=== PATIENT | female | born 1955 | race Caucasian/White ===

== ENCOUNTER → 2016-11-10 | Day surgery (SDC) | payer OTHER ==
[~2016-11-10] MED LIST: ALPR0.25 PO; AMLO5 PO; ASPI-110 PO; ASPI81TA81; BACT800T5 PO; CEPH-460 PO; CYAN1TAB24 PO; ENAL10TA PO; GABA300C5 PO; LACTATED RINGER'S 1000 ML INJ 1,000 ML ONE; LIDOCAINE 1%/EPINEPHrine 1:100,000 SOLN 20 ML VIAL ONE; MIDAZOLAM HCL 2 MG/2 ML VIAL ONE; ONDANSETRON HCL 4 MG/2 ML VIAL IV PUSH ONE; OXYC1TAB63 PO; PROPOFOL 500 MG/50 ML BTL IV ONE; SODIUM CHLORIDE 0.9% INJ 10 ML ONE; VITA400C5 PO; ceFAZolin 2 GM PREMIX 50 ML ONE
--- NOTE | 2016-11-10 08:21 | TN ---
cc: JW MOLINA M.D., RUBY ANNE E. M.D. DATE OF SURGERY: 11/10/2016 PREOPERATIVE DIAGNOSIS Right breast poorly differentiated triple-negative invasive ductal carcinoma. POSTOPERATIVE DIAGNOSIS Right breast poorly differentiated triple-negative invasive ductal carcinoma. PROCEDURE Left subclavian Apmtkt-Y-Elph with intraoperative fluoroscopy. SURGEON Dr. Jw Molina ANESTHESIA Local 1% lidocaine with epinephrine plus TIVA. INDICATIONS A very pleasant 60-year-old woman who was recently diagnosed with poorly differentiated invasive ductal carcinoma of the right breast. It was triple negative. She has a 2.9 x 2.3 x 2.3 cm cancer seen on MRI with possibly local satellite lesions. She is interested in neoadjuvant chemotherapy. I have talked to Dr. Velasquez about this and she is in agreement. Port placement was planned. INTRAOPERATIVE FINDINGS Successful placement of left subclavian Lmkfpt-T-Ainp with the tip of the catheter in the distal superior vena cava. Port function was tested and there was easy blood return and forward concentrated heparinized saline flush flow through the port. A portable chest x-ray is pending. ESTIMATED BLOOD LOSS Less than 10 mL. DESCRIPTION OF PROCEDURE IN DETAIL The patient was identified as Christi Blount, taken to the operating room and placed in supine position with a rolled sheet between the shoulder blades. Following IV sedation by Anesthesia the upper chest and neck were prepped and draped in the usual sterile fashion with Betadine. A timeout procedure was performed. Following completion of the timeout procedure to everyone's satisfaction within the room, 1% lidocaine with epinephrine was infiltrated in the left subclavian area. The patient was placed in Trendelenburg position. The left subclavian vein was entered without difficulty using the introducer needle. A guidewire was advanced through the introducer needle into an appropriate position as seen on C-arm fluoroscopy. An Xwisuz-J-Fojv pocket was developed on the anterior chest after incision of the skin with a scalpel. The Sgqjmc-T-Fxpz which had been flushed with heparinized saline was placed into the Xlugvz-H-Ydey pocket with two 2-0 Prolene stay sutures and the catheter cut to an appropriate length as seen on C-arm fluoroscopy. A dilator and dilating sheath were placed over the guidewire. The dilator and guidewire were removed. The catheter was fed through the dilating sheath into appropriate position as seen on C-arm fluoroscopy. The dilating sheath was removed and the tip of the catheter was noted to be in the superior vena cava. Port function was tested and again there was easy blood return and forward concentrated heparinized saline flush flow through the port. The port pocket was closed in two layers with 3-0 Vicryl and 4-0 Monocryl. Dressing was applied with Mastisol, half-inch brown Steri-Strips, gauze and Tegaderm. The patient tolerated the procedure without apparent complication. Sponge, needle and instrument counts were correct at the end of the case. MD NEREYDA Santroo/BT /8:01 AM /8:16 AM
== END | disposition home or self-care (01) ==
LOC: ESDC 06:26
PROVIDERS: ATTEND Surgery Trauma Surgery
DX: C50.911 Malignant neoplasm of unspecified site of right female breast (principal)
CPT/HCPCS: 00532; 36561; 77001; C1788; J0690; J1642; J2250; J2405; J3010; J7120

== ENCOUNTER 2016-12-23 15:24 | Inpatient (IN) | payer OTHER ==
[~2016-12-23] VITALS: Ht 162.6 cm; Wt 71.0 kg
[2016-12-23 17:00] VITALS: BP 139/79; PULSE 95; RESP 18; TEMP 97.6; O2SAT 96
[2016-12-23] MEDS ORDERED: ONDANSETRON HCL 4 MG/2 ML VIAL IVP PRN ×2 (18:00→22:45)
[2016-12-23] MEDS ORDERED: SENNOSIDES 8.6 MG TAB PO PRN (18:00)
[2016-12-23] MEDS ORDERED: ASPI-110 PO (18:10)
[2016-12-23] MEDS ORDERED: AMLO5 PO (18:10)
[2016-12-23] MEDS ORDERED: CYAN1TAB24 PO (18:10)
[2016-12-23] MEDS ORDERED: ENAL10TA PO (18:10)
[2016-12-23] MEDS ORDERED: ASPI81TA81 (18:10)
[2016-12-23] MEDS ORDERED: VITA400C5 PO (18:10)
[2016-12-23] MEDS ORDERED: GABA300C5 PO (18:10)
[2016-12-23] MEDS ORDERED: ALPR0.25 PO (18:11)
[2016-12-23] MEDS ORDERED: Vancomycin Consult Pharmacy 1 EA OTHER SCH (18:15)
[2016-12-23] MEDS ORDERED: SODIUM CHLOR 0.9% 1000 ML INJ 1,000 ML IV SCH (19:00)
--- NOTE | 2016-12-23 19:10 | MH ---
cc: CHEMO TOVAR DATE OF ADMISSION 12/23/2016 DATE OF 1955 REASON FOR ADMISSION Low neutrophil count. Breast cancer. HISTORY OF PRESENT ILLNESS This is a pleasant 60-year-old white female who was recently diagnosed with invasive ductal carcinoma grade 3. The patient was in the hospital at the end of October with her newly diagnosed breast cancer. She is currently back in the hospital after her third round of chemotherapy with an extreme low neutrophil count 0.1. The patient will be followed per the hospitalist service as well as her oncologist with a plan to monitor, monitor reverse isolation and transition her neutrophil count back up. Any cancer treatment or regimen will be followed per oncology. The hospitalist will do medical management for comorbidities and to assist with monitoring her labs. Currently the patient is alert and oriented, a fairly good historian. She is receptive to her hospitalization and care. Her is at her side. Her symptoms include generalized weakness and fatigue especially after receiving chemotherapy treatment. PAST MEDICAL HISTORY Includes: 1. Fatty liver disease. 2. Hypertension. 3. No previous radiation therapy. Has just received her third chemotherapy treatment. 4. Auto Inspection Specialist history, two pregnancies one . Postmenopausal at age 47. PAST SURGICAL HISTORY 1. Port placement left chest wall. 2. Right breast guided biopsy. 3. Colonoscopy in 2008. ALLERGIES LATEX. MEDICATIONS 1. Aspirin. 2. Gabapentin. 3. Vitamin B12. 4. Amlodipine. 5. Enalapril per her old record. SOCIAL HISTORY The patient is currently , lives with her . The patient has never smoked. Social alcohol use, occasional. No illicit drug use. REVIEW OF SYSTEMS A 12 point was obtained. Positives and symptoms noted in the history of present illness which include some generalized weakness and fatigue. The patient denies any chest pain. No shortness of breath. No headache. appetite immediately after treatment but appetite has returned. The patient was able to eat yesterday without any distress. The patient is alert and oriented, a good historian. Other systems unremarkable or negative. PHYSICAL EXAMINATION VITAL SIGNS: The patient is a direct admission. Vital signs are pending. Her heart rate is palpable at less than 100, respirations are 20. GENERAL: Slim but well-nourished, white female, looks to be her stated age, resting in the bed. Alert, oriented, cooperative. SKIN: [place], warm and dry. [place] mucous membranes. HEENT: Atraumatic, normocephalic. Alopecia. No rashes. She does have a lesion that is closed without drainage noted on the right side of her head up above her ear. She does have erythema and some mild edema. She also notes a boil on the side of her upper leg close to the groin area. She states that the boil has had erythema but has decreased in size today. She was started on antibiotics yesterday. CARDIOVASCULAR: S1-S2, regular rate and rhythm. No murmurs, rubs, or gallops. LUNGS: Essentially clear anteriorly and posteriorly with no wheeze, rales or rhonchi. The patient denies any cough. ABDOMEN: Flat, soft and nontender, nondistended. Active bowel sounds. Soft. MUSCULOSKELETAL: Moves all of her extremities with purpose. She has no edema. Her pulses are intact. NEUROLOGIC: Speech is clear, audible. Equal hand grocery associate. Tongue is midline. Good historian. PSYCHIATRIC: Appropriate mood and affect. Insight and judgment appear normal. LABORATORY DATA The patient had CBC count drawn on 12/23/2016, WBC is 0.4, RBC 2.94, hemoglobin 9.5, hematocrit 27.6. Lymphocyte auto percentage 60.4, monocyte auto percentage 19.8. Eosinophils 0.3. Basophils 1.7. Neutrophil auto number is 0.1. Her neutrophil percentage is 17.8. Her manual neutrophil count is 0.1. Chemistries, sodium 143, potassium 3.8, chloride 106, carbon dioxide 29.3, anion gap 8, BUN 8, creatinine 0.68, GFR 89, random glucose 96. Calcium 8.8. Bilirubin 0.4, AST 25, ALT 38, alkaline phosphatase 73. Total protein 6.9. Albumin 3.5. No urine. IMAGING No imaging studies. ASSESSMENT AND PLAN 1. Neutropenia. 2. History of invasive ductal carcinoma. 3. Anemia. 4. History of hypertension. 5. History of fatty liver disease. Our plan is to monitor her vital signs, admit to inpatient status. Blood cultures have been drawn. We will monitor her vital signs q.4h. We will start the patient on antibiotics. Oxygen if patient as needed 2 liters. Activity as tolerated in her room. She is in reverse insolation with mask and gloves. We will monitor the infection and boils that are on her head and groin area. The patient was started on a penicillin antibiotic yesterday but we will start her on an IV antibiotic during the course of her treatment. To my knowledge the patient is full code, full aggressive care. She will be followed per Dr. Velasquez for her oncology needs. The patient will have pain management and her meds reconciled. Dictated by: MICHAEL Rodriguez Chemo Tovar MD JP/LIVIA /5:37 PM /6:27 PM PT SEEN AND EXAMINED ABOVE [facility] AND FAMILY AT BEDSIDE PLAN OF CARE [facility] MILLER RN SEE ORDERS MTDD
[2016-12-23 20:00] VITALS: BP 133/79; PULSE 102; RESP 18; TEMP 97.4; O2SAT 98
[2016-12-23] MEDS ORDERED: PIPERACIL-TAZO 3.375 GM PREMIX 50 ML IV SCH (20:00)
[2016-12-23] MEDS ORDERED: VANCOMYCIN 1,000 MG/NS 250 ML IV SCH ×2 (21:00)
[2016-12-23] MEDS: SODIUM CHLOR 0.9% 1000 ML INJ 1,000 ML IV SCH (22:38)
[2016-12-23] MEDS ORDERED: GABAPENTIN 300 MG CAP PO PRN (22:45)
[2016-12-23] MEDS ORDERED: ALPRAZolam 0.25 MG TAB PO PRN (22:45)
[2016-12-23] MEDS ORDERED: MORPHINE SULFATE 4 MG/ML INJ IV PRN (22:45)
[2016-12-23] MEDS ORDERED: oxyCODONE/ACETAMINOPHEN 5 MG/325 MG TAB PO PRN (22:45)
[2016-12-23] MEDS: VANCOMYCIN 1,000 MG/NS 250 ML IV SCH ×2 (23:31)
[2016-12-24] VITALS (7 sets, daily range): BP systolic 106–145; BP diastolic 61–82; PULSE 73–94; RESP 16–18; TEMP 97.8–98.5; O2SAT 95–99
[2016-12-24] MEDS: ALPRAZolam 0.25 MG TAB PO PRN ×2 (00:02→22:49)
[2016-12-24] MEDS ORDERED: CEFEPIME INJ 2,000 MG in SODIUM CHLORIDE 0.9% INJ 100 ML IV SCH (01:00)
[2016-12-24] MEDS ORDERED: CEFEPIME INJ 1,000 MG in SODIUM CHLORIDE 0.9% INJ 100 ML IV SCH (01:00)
[2016-12-24 04:59] LABS: BLOOD, URINE NEG (NEG); COMMENT (UR) CULT NOT INDICATED; CULTURE IF INDICATED CULT NOT INDICATED; GLUCOSE,URINE NEG (NEG); KETONE, URINE NEG (NEG); MUCUS URINE FEW /lpf (OCC); NITRITE,URINE NEG (NEG); PH, URINE 7.5 (5.0-8.5); SQUAMOUS EPITHELIAL CELL URINE <1 /hpf (0-5); URINE COLOR YELLOW (YELLW/STRAW)
[2016-12-24 06:22] LABS: HEMATOCRIT 24.2 % (35.0-46.0); MEAN CELL VOLUME 94.2 FL (80.0-100.0); MEAN CORPUSCULAR HEMOGLOBIN 32.3 PG (27.0-34.0); MEAN CORPUSCULAR HGB CONC 34.2 % (32.0-36.0); PLATELET COUNT 117 TH/MM3 (150-450); RED BLOOD COUNT 2.57 MIL/MM3 (4.00-5.30); RED CELL DISTRIBUTION WIDTH 13.2 % (11.6-17.2); WHITE BLOOD COUNT 0.6 TH/MM3 (4.0-11.0)
[2016-12-24 06:28] LABS: HEMO FLAGS AUTO DIFF
[2016-12-24 06:49] LABS: ALT (GPT) 25 U/L (10-53); ANION GAP 7 MEQ/L (5-15); AST (GOT) 17 U/L (15-37); BICARBONATE 27.2 MEQ/L (21.0-32.0); BLOOD UREA NITROGEN 7 MG/DL (7-18); CHLORIDE 104 MEQ/L (98-107); GLOMERULAR FILTRATION RATE 126 ML/MIN (>89); POTASSIUM 3.9 MEQ/L (3.5-5.1); SODIUM (NA) 138 MEQ/L (136-145)
[2016-12-24 06:51] LABS: ALKALINE PHOSPHATASE 59 U/L (45-117); TOTAL BILIRUBIN ADULT 0.5 MG/DL (0.2-1.0)
--- NOTE | 2016-12-24 07:48 | MB ---
cc: LACEY OLMSTEAD,CHEMO DATE OF CONSULTATION 12/23/2016 DATE OF [address] Chemo Rodríguez CHIEF COMPLAINT Dr. Rodríguez requested consultation for Mrs. Blount regarding neutropenic fever associated with breast cancer adjuvant therapy. HISTORY OF PRESENT ILLNESS Mrs. Blount is a 60-year-old woman with history of fatty liver, hypertension, and eczema. She presented with a palpable abnormality in her right breast and was diagnosed with a triple negative poorly differentiated invasive ductal carcinoma. On clinical ground, she had a stage IIB, T2, N1, M0 triple negative right breast cancer. She was receiving neoadjuvant chemotherapy with initial partial response. Her last chemotherapy her lesion appeared to have enlarged. She was treated with her last chemo week ago. Ultrasound comparison showed that the lesion was bigger. The day prior to her presentation in clinic, she went to [facility] consultation with Dr. Vicente. She reports having fevers of 100.9. It was documented at [facility]. CBC was performed at [facility] and she was called with the results of ANC of 500. She stayed at home. She did not call oncology until the following morning. She felt unwell overnight. She was started on amoxicillin for a scalp lesion. She had a skin infection. In the morning of the admission, she was instructed to come into the clinic to have a CBC repeated. Indeed her white count was 0.4, ANC of 100. She was having low grade temperature and temperature in clinic was 99.9. With the above, she was readily transferred to the hospital for admission. Admission was coordinated through Dr. Rodríguez. She was given a first dose of antibiotic in the regional oncology clinic. Ms. Blount denies any localizing symptoms. She has a scalp lesion that looks like cellulitis or focal folliculitis in the right parietal area as well as in the pubic area. She appears to have had some ingrown hair. For this reason, she was taking the amoxicillin overnight. She denies any other fever source. No cough. No shortness of breath. She was feeling unwell all throughout yesterday and today. She had a good consultation with Dr. Vicente. She is eager to see her surgeon, Dr. Oliver tomorrow, however, she is admitted to the hospital with the neutropenic fever. She has some generalized fatigue and nondescript achiness. REVIEW OF SYSTEMS The rest of her review of systems is negative. No headaches. No vision changes. PAST MEDICAL HISTORY 1. Fatty liver 2. Hypertension 3. Locally advanced right breast cancer triple negative. PAST SURGICAL HISTORY 1. Port placement 2. Ultrasound-guided biopsy 3. Colonoscopy FAMILY HISTORY Mother is . Father is alive. Paternal grandfather at age 84 with cancer. SOCIAL HISTORY Mrs. Blount is , lives with her , denies any tobacco or illicit drug use. She drinks alcohol occasionally. ALLERGIES LATEX CURRENT MEDICATIONS 1. Vancomycin 2. Xanax 3. Piperacillin/tazobactam PHYSICAL EXAM VITAL SIGNS: Temperature 97.6 heart rate 95, respiratory rate 18, blood pressure 139/79, saturation 96%. GENERAL: Mrs. Blount is a well-developed, well-nourished pleasant woman with alopecia. HEAD, EYES, EARS, NOSE, AND THROAT: Her pupils are reactive to light and accommodation. Oropharynx is clear. There is a small spot of wet purpura in the left buccal mucosa. LUNGS: Clear to auscultation. CARDIOVASCULAR: Exam reveals a normal rate, rhythm. ABDOMEN: Benign. EXTREMITIES: Lower extremity with no edema. NEUROLOGIC: Exam is nonfocal. There is an erythematous patch with diffuse margins in the right parietal area. She has alopecia. LABORATORY DATA Significant for a CBC with a hemoglobin 9.5, platelet count 166, ANC of 0.4. ASSESSMENT/PLAN Mrs. Blount is a 60-year-old woman receiving neoadjuvant chemotherapy admitted for neutropenic fever. Her ANC is 100. She has symptoms of feeling unwell. Her fever is partially treated with amoxicillin taken for a scalp lesion. I discussed with And Mrs. Blount rationale for admission to the hospital because of neutropenic fever. Blood culture was obtained in an outpatient setting. We will follow. We will monitor closely for any fevers. She has developed neutropenia despite G-CSF support. She is going to continue vancomycin in light of the skin lesion in the port. She will also be placed on Cefepime which will continue. She was given her first dose in the clinic around 02:00 p.m. We will need to follow up with Dr. Oliver as she is failing to respond to neoadjuvant chemotherapy. The breast mass is enlarging. She is advised at [facility] to proceed with definitive surgery for the right breast. She is agreeable with that plan which we plan to coordinate with Dr. Oliver on an outpatient setting. We will proceed with antibiotic prophylaxis. Reverse isolation. We will monitor closely for any other problems. MD LISY Garland/[place] /9:35 PM /7:30 AM
[2016-12-24] MEDS: PANTOPRAZOLE SOD 40 MG DELAYED RELEASE TAB PO SCH (07:55)
[2016-12-24] MEDS: ASPIRIN 81 MG CHEW TAB PO SCH (07:55)
[2016-12-24] MEDS: SODIUM CHLOR 0.9% 1000 ML INJ 1,000 ML IV SCH ×2 (07:55→17:59)
[2016-12-24] MEDS: CYANOCOBALAMIN 1,000 MCG TAB PO SCH (07:55)
[2016-12-24] MEDS: ACETAMINOPHEN 325 MG TAB PO PRN ×3 (08:07→17:59)
[2016-12-24] MEDS: VITAMIN E 400 UNIT CAP PO SCH (08:08)
[2016-12-24 08:53] LABS: BANDS 18 % (0-6); NEUTROPHIL # MANUAL DIFF 0.2 TH/MM3 (1.8-7.7); POLYS (SEG NEUTROPHILS) 10 % (16-70); WBC DIFF SAMPLE 50
[2016-12-24 08:54] LABS: DOHLE BODIES PRESENT (NONE SEEN); PLATELET ESTIMATE SMEAR LOW (NORMAL); PLATELET MORPHOLOGY NORMAL (NORMAL); SCAN/DIFF FINAL DIFF MANUAL
[2016-12-24] MEDS ORDERED: VITAMIN E 400 MG PO SCH (09:00)
[2016-12-24] MEDS ORDERED: NON-FORMULARY DRUG (Cyanocobalamin (B12) 1,000 MCG) PO SCH (09:00)
[2016-12-24] MEDS ORDERED: ASPIRIN 81 MG PO SCH (09:00)
[2016-12-24] MEDS ORDERED: amLODIPine BESYLATE 5 MG TAB PO SCH (09:00)
--- NOTE | 2016-12-24 09:29 | HHI.PR ---
Subjective Remarks Patient had some headache when she woke up and relieved by Tylenol No other complaint Review of system for 12 point system otherwise unremarkable Objective Objective Results - Vital Signs Date Time Temp Pulse Resp B/P Pulse Ox O2 Delivery O2 Flow Rate FiO2 12/24/16 08:00 98.2 73 16 116/74 98 12/24/16 04:00 98.4 87 17 106/61 97 12/24/16 00:00 97.9 85 17 118/64 99 12/23/16 20:00 97.4 102 18 133/79 98 12/23/16 17:00 97.6 95 18 139/79 96 I/O 12/23/16 12/23/16 12/23/16 12/24/16 12/24/16 12/24/16 07:00 15:00 23:00 07:00 15:00 23:00 Intake Total 480 ml 240 ml Balance 480 ml 240 ml Intake Oral 480 ml 240 ml # Voids 3 Result Diagram: 12/24/16 0548 12/24/16 0548 Other Results Laboratory Tests Test 12/24/16 12/24/16 00:45 05:48 Urine Color YELLOW Urine Turbidity CLEAR Urine pH 7.5 Urine Specific [place] 1.020 Urine Protein NEG Urine Glucose (UA) NEG Urine Ketones NEG Urine Occult Blood NEG Urine Nitrite NEG Urine Bilirubin NEG Urine Urobilinogen GREATER THAN 12.0 Urine Leukocyte Esterase NEG Urine RBC 1 Urine WBC 1 Urine Squamous Epithelial <1 Cells Urine Mucus FEW Microscopic Urinalysis Comment CULT NOT INDICATED White Blood Count 0.6 Red Blood Count 2.57 Hemoglobin 8.3 Hematocrit 24.2 Mean Corpuscular Volume 94.2 Mean Corpuscular Hemoglobin 32.3 Mean Corpuscular Hemoglobin 34.2 Concent Red Cell Distribution Width 13.2 Platelet Count 117 Mean Platelet Volume 8.4 Neutrophils (%) (Auto) Lymphocytes (%) (Auto) Monocytes (%) (Auto) Eosinophils (%) (Auto) Basophils (%) (Auto) Neutrophils # (Auto) Lymphocytes # (Auto) Monocytes # (Auto) Eosinophils # (Auto) Basophils # (Auto) CBC Comment AUTO DIFF Differential Total Cells 50 Counted Neutrophils % (Manual) 10 Band Neutrophils % 18 Lymphocytes % 48 Monocytes % 24 Neutrophils # (Manual) 0.2 Differential Comment FINAL DIFF MANUAL Dohle Bodies PRESENT Platelet Estimate LOW Platelet Morphology Comment NORMAL Red Cell Morphology Comment NORMAL Sodium Level 138 Potassium Level 3.9 Chloride Level 104 Carbon Dioxide Level 27.2 Anion Gap 7 Blood Urea Nitrogen 7 Creatinine 0.50 Estimat Glomerular Filtration 126 Rate Random Glucose 93 Calcium Level 8.5 Total Bilirubin 0.5 Aspartate Amino Transf 17 (AST/SGOT) Alanine Aminotransferase 25 (ALT/SGPT) Alkaline Phosphatase 59 Total Protein 6.3 Albumin 3.1 Date/Time Procedure Status Source Growth 12/23/16 13:45 Aerobic Blood Culture Received Blood Peripheral Pending 12/23/16 13:45 Anaerobic Blood Culture Received Blood Peripheral Pending Physical Exam Physical Exam VITAL SIGNS: Reviewed GENERAL: Slim but well-nourished, white female, looks to be her stated age, resting in the bed. Alert, oriented, cooperative. SKIN: [place], warm and dry. [place] mucous membranes. HEENT: Atraumatic, normocephalic. Alopecia. No rashes. She does have a lesion that is closed without drainage noted on the right side of her head new posterior upper side of temporal area, approximately 3 cm of erythema with some tenderness and mild swelling. No fluctuation. She also noted a boil on the side of her upper leg close to the groin area. She states that the boil has had erythema but has improved significantly. CARDIOVASCULAR: S1-S2, regular rate and rhythm. No murmurs, rubs, or gallops. LUNGS: Essentially clear anteriorly and posteriorly with no wheeze, rales or rhonchi. The patient denies any cough. ABDOMEN: Flat, soft and nontender, nondistended. Active bowel sounds. Soft. MUSCULOSKELETAL: Moves all of her extremities with purpose. She has no edema. Her pulses are intact. NEUROLOGIC: Speech is clear, audible. Equal hand fingernail sculptor. Tongue is midline. Good historian. PSYCHIATRIC: Appropriate mood and affect. Insight and judgment appear normal. A/P Assessment and Plan 1. Neutropenia. Neutropenic fever on admission 2. History of invasive ductal carcinoma. On neoadjuvant chemotherapy 3. Anemia. Of chronic disease 4. hypertension. 5. History of fatty liver disease. 6. Boil/cellulitis of head and groin area monitor her vital signs Monitor Blood cultures Labs reviewed Pancytopenia, will monitor Hypoalbuminemia Continue on antibiotics Oxygen if patient as needed 2 liters Activity as tolerated in her room She is in reverse insolation with mask and gloves monitor the infection and boils that are on her head and groin area Appreciate oncology input Discussed with RN Discussed with patient Medications reviewed Moon Rodríguez MD December 24, 2016 09:29
[2016-12-24] MEDS ORDERED: PILL SPLITTER OTHER PRN (09:45)
[2016-12-24] MEDS: VANCOMYCIN 1,000 MG/NS 250 ML IV SCH ×2 (10:28)
[2016-12-24] MEDS: CEFEPIME INJ 2,000 MG in SODIUM CHLORIDE 0.9% INJ 100 ML IV SCH ×4 (13:10→22:47)
--- NOTE | 2016-12-24 23:34 | PD.ONC.PN ---
Subjective Subjective Remarks Feels scalp is better, less pain. No fevers overnight. Objective Data Date Time Temp Pulse Resp B/P Pulse Ox O2 Delivery O2 Flow Rate FiO2 12/24/16 21:33 97 12/24/16 20:00 98.4 94 17 140/79 95 12/24/16 16:00 98.5 90 18 121/82 97 12/24/16 12:00 97.8 79 18 145/80 95 12/24/16 08:00 98.2 73 16 116/74 98 12/24/16 04:00 98.4 87 17 106/61 97 12/24/16 00:00 97.9 85 17 118/64 99 12/24/16 12/24/16 12/24/16 07:00 15:00 23:00 Intake Total 480 ml 840 ml 1136 ml Balance 480 ml 840 ml 1136 ml Result Diagram: 12/24/16 0548 12/24/16 0548 Laboratory Results Laboratory Tests Test 12/24/16 12/24/16 00:45 05:48 Urine Color YELLOW Urine Turbidity CLEAR Urine pH 7.5 Urine Specific [place] 1.020 Urine Protein NEG mg/dL Urine Glucose (UA) NEG mg/dL Urine Ketones NEG mg/dL Urine Occult Blood NEG Urine Nitrite NEG Urine Bilirubin NEG Urine Urobilinogen GREATER THAN 12.0 MG/DL Urine Leukocyte Esterase NEG Urine RBC 1 /hpf Urine WBC 1 /hpf Urine Squamous Epithelial <1 /hpf Cells Urine Mucus FEW /lpf Microscopic Urinalysis Comment CULT NOT INDICATED White Blood Count 0.6 TH/MM3 Red Blood Count 2.57 MIL/MM3 Hemoglobin 8.3 GM/DL Hematocrit 24.2 % Mean Corpuscular Volume 94.2 FL Mean Corpuscular Hemoglobin 32.3 PG Mean Corpuscular Hemoglobin 34.2 % Concent Red Cell Distribution Width 13.2 % Platelet Count 117 TH/MM3 Mean Platelet Volume 8.4 FL Neutrophils (%) (Auto) % Lymphocytes (%) (Auto) % Monocytes (%) (Auto) % Eosinophils (%) (Auto) % Basophils (%) (Auto) % Neutrophils # (Auto) TH/MM3 Lymphocytes # (Auto) TH/MM3 Monocytes # (Auto) TH/MM3 Eosinophils # (Auto) TH/MM3 Basophils # (Auto) TH/MM3 CBC Comment AUTO DIFF Differential Total Cells 50 Counted Neutrophils % (Manual) 10 % Band Neutrophils % 18 % Lymphocytes % 48 % Monocytes % 24 % Neutrophils # (Manual) 0.2 TH/MM3 Differential Comment FINAL DIFF MANUAL Dohle Bodies PRESENT Platelet Estimate LOW Platelet Morphology Comment NORMAL Red Cell Morphology Comment NORMAL Sodium Level 138 MEQ/L Potassium Level 3.9 MEQ/L Chloride Level 104 MEQ/L Carbon Dioxide Level 27.2 MEQ/L Anion Gap 7 MEQ/L Blood Urea Nitrogen 7 MG/DL Creatinine 0.50 MG/DL Estimat Glomerular Filtration 126 ML/MIN Rate Random Glucose 93 MG/DL Calcium Level 8.5 MG/DL Total Bilirubin 0.5 MG/DL Aspartate Amino Transf 17 U/L (AST/SGOT) Alanine Aminotransferase 25 U/L (ALT/SGPT) Alkaline Phosphatase 59 U/L Total Protein 6.3 GM/DL Albumin 3.1 GM/DL Culture Results Microbiology Date/Time Procedure Status Source Growth 12/23/16 13:45 Aerobic Blood Culture - Preliminary Resulted Blood Peripheral NO GROWTH IN 1 DAY 12/23/16 13:45 Anaerobic Blood Culture - Preliminary Resulted Blood Peripheral NO GROWTH IN 1 DAY Administered Medications Medications (Trade) Dose Ordered Sig/Jama Route PRN Reason Start Time Stop Time Status Last Admin Dose Admin Alprazolam 0.25 mg 0.25 mg Q6H PRN PO ANXIETY 12/23/16 21:00 12/24/16 22:49 Cefepime HCl 2000 mg/Sodium Chloride 100 ml @ 200 mls/hr Q12H IV 12/24/16 00:00 12/24/16 22:47 Sodium Chloride (NS 1000 ml Inj) 1,000 ml @ 100 mls/hr Q10H IV 12/23/16 22:38 12/24/16 17:59 Acetaminophen (Tylenol) 650 mg Q6H PRN PO PAIN SCALE 1 TO 2 12/23/16 22:45 12/24/16 15:47 Pantoprazole Sodium (Protonix) 40 mg DAILY PO 12/24/16 09:00 12/24/16 07:55 Aspirin (Aspirin Chew) 81 mg DAILY PO 12/24/16 09:00 12/24/16 07:55 Cyanocobalamin (Vitamin B12) 1,000 mcg DAILY PO 12/24/16 09:00 12/24/16 07:55 Vitamin E 400 units 400 units DAILY PO 12/24/16 09:00 12/24/16 08:08 Vancomycin HCl/ Sodium Chloride (Vancomycin Inj/ NS 250 ml Inj) 250 ml @ 250 mls/hr Q12H IV 12/23/16 23:00 12/24/16 10:28 Objective Remarks GENERAL: Well-nourished, well-developed patient. SKIN: Warm and dry. Erythema with cellulitis present. HEAD: Normocephalic. Alopecia. EYES: No scleral icterus. No injection or drainage. NECK: Supple, trachea midline. No JVD or lymphadenopathy. LYMPHATIC: No adenopathy. CARDIOVASCULAR: Regular rate and rhythm without murmurs. RESPIRATORY: Breath sounds equal bilaterally. No accessory muscle use. GASTROINTESTINAL: Abdomen soft, non-tender, nondistended. EXTREMITIES: No cyanosis, or edema. MUSCULOSKELETAL: Adequate muscle tone. NEUROLOGICAL: No obvious focal deficit. Awake, alert, and oriented x3. PSYCHIATRIC: Appropriate mood and affect; insight and judgment normal. Assessment/Plan Problem List: (1) Neutropenic fever Status: Acute Plan: Afebrile, clinically better, still with R scalp cellulitis/folliculitis. Still severely neutropenic. Vitals stable. Blood cultures still negative. Continue broad spectrum antibiotic support. (2) Locally advanced carcinoma of right breast Status: Acute Plan: Discussed plan for resection of triple negative breast cancer not responsive to neoadjuvant chemotherapy with Adriamycin and Cytoxan. Plan with Dr. Oliver to proceed with R mastectomy next Wednesday. Anticipate Neutrophil recovery by then. Defer plans for reconstruction. Assessment 61 y/o woman with locally advanced triple negative R breast cancer, growing despite chemotherapy, course complicated by neutropenic fever and R scalp cellulitis/folliculitis. Plan 1. Continue Cefepime and Vancomycin 2. Defer from TPA port until WBC recover 3. Continue reverse isolation Alaina Velasquez MD December 24, 2016 23:34
[2016-12-25] VITALS: BP 126/87; PULSE 91; RESP 17; TEMP 97.3; O2SAT 96
[2016-12-25] MEDS: VANCOMYCIN 1,000 MG/NS 250 ML IV SCH ×4 (00:13→11:50)
[2016-12-25] MEDS: SODIUM CHLOR 0.9% 1000 ML INJ 1,000 ML IV SCH (03:00)
[2016-12-25 04:00] VITALS: BP 123/65; PULSE 91; RESP 17; TEMP 98.1; O2SAT 96
[2016-12-25] MEDS: ASPIRIN 81 MG CHEW TAB PO SCH (07:35)
[2016-12-25] MEDS: PANTOPRAZOLE SOD 40 MG DELAYED RELEASE TAB PO SCH (07:35)
[2016-12-25] MEDS: VITAMIN E 400 UNIT CAP PO SCH (07:35)
[2016-12-25] MEDS: CYANOCOBALAMIN 1,000 MCG TAB PO SCH (07:35)
[2016-12-25 07:40] LABS: BASOPHIL % 0.4 % (0.0-2.0); EOSINOPHIL % 0.1 % (0.0-4.0); HEMATOCRIT 26.7 % (35.0-46.0); LYMPH % 22.2 % (9.0-44.0); LYMPHOCYTE # 0.4 TH/MM3 (1.0-4.8); MEAN CELL VOLUME 93.8 FL (80.0-100.0); MEAN CORPUSCULAR HEMOGLOBIN 32.1 PG (27.0-34.0); MEAN CORPUSCULAR HGB CONC 34.3 % (32.0-36.0); MONO % 14.1 % (0.0-8.0); NEUT % 63.2 % (16.0-70.0); PLATELET COUNT 122 TH/MM3 (150-450); RED BLOOD COUNT 2.85 MIL/MM3 (4.00-5.30); WHITE BLOOD COUNT 1.6 TH/MM3 (4.0-11.0)
[2016-12-25 07:42] LABS: HEMO FLAGS AUTO DIFF
[2016-12-25 08:59] VITALS: BP 158/93; PULSE 89; RESP 20; TEMP 97.9; O2SAT 98
[2016-12-25] MEDS ORDERED: amLODIPine BESYLATE 5 MG TAB PO SCH (09:00)
--- NOTE | 2016-12-25 09:20 | HHI.PR ---
Subjective Remarks Patient has no complaint Wants to go home today Review of system for 12 point system otherwise unremarkable Objective Objective Results - Vital Signs Date Time Temp Pulse Resp B/P Pulse Ox O2 Delivery O2 Flow Rate FiO2 12/25/16 08:59 97.9 89 20 158/93 98 12/25/16 04:00 98.1 91 17 123/65 96 12/25/16 00:00 97.3 91 17 126/87 96 12/24/16 21:33 97 12/24/16 20:00 98.4 94 17 140/79 95 12/24/16 16:00 98.5 90 18 121/82 97 12/24/16 12:00 97.8 79 18 145/80 95 I/O 12/24/16 12/24/16 12/24/16 12/25/16 12/25/16 12/25/16 07:00 15:00 23:00 07:00 15:00 23:00 Intake Total 480 ml 840 ml 1136 ml 1555 ml Balance 480 ml 840 ml 1136 ml 1555 ml Intake Oral 480 ml 840 ml 480 ml IV Total 1136 ml 1075 ml # Voids 3 4 3 5 # Bowel Movements 0 Result Diagram: 12/25/16 0655 12/24/16 0548 Other Results Laboratory Tests Test 12/25/16 06:55 White Blood Count 1.6 Red Blood Count 2.85 Hemoglobin 9.2 Hematocrit 26.7 Mean Corpuscular Volume 93.8 Mean Corpuscular Hemoglobin 32.1 Mean Corpuscular Hemoglobin 34.3 Concent Red Cell Distribution Width 13.0 Platelet Count 122 Mean Platelet Volume 8.9 Neutrophils (%) (Auto) 63.2 Lymphocytes (%) (Auto) 22.2 Monocytes (%) (Auto) 14.1 Eosinophils (%) (Auto) 0.1 Basophils (%) (Auto) 0.4 Neutrophils # (Auto) 1.0 Lymphocytes # (Auto) 0.4 Monocytes # (Auto) 0.2 Eosinophils # (Auto) 0.0 Basophils # (Auto) 0.0 CBC Comment AUTO DIFF Date/Time Procedure Status Source Growth 12/23/16 13:45 Aerobic Blood Culture - Preliminary Resulted Blood Peripheral NO GROWTH IN 1 DAY 12/23/16 13:45 Anaerobic Blood Culture - Preliminary Resulted Blood Peripheral NO GROWTH IN 1 DAY Physical Exam Physical Exam VITAL SIGNS: Reviewed GENERAL: Slim but well-nourished, white female, looks to be her stated age, resting in the bed. Alert, oriented, cooperative. SKIN: [place], warm and dry. [place] mucous membranes. HEENT: Atraumatic, normocephalic. Alopecia. No rashes. She does have a lesion that is closed without drainage noted on the right side of her head new posterior upper side of temporal area, approximately 2 cm of erythema with some mild tenderness and mild swelling. No fluctuation. She also had a boil on the side of her upper leg close to the groin area. She states that the boil has had erythema but has improved. CARDIOVASCULAR: S1-S2, regular rate and rhythm. No murmurs, rubs, or gallops. LUNGS: Essentially clear anteriorly and posteriorly with no wheeze, rales or rhonchi. The patient denies any cough. ABDOMEN: Flat, soft and nontender, nondistended. Active bowel sounds. Soft. MUSCULOSKELETAL: Moves all of her extremities with purpose. She has no edema. Her pulses are intact. NEUROLOGIC: Speech is clear, audible. Equal hand commercial lines sales executive. Tongue is midline. Good historian. PSYCHIATRIC: Appropriate mood and affect. Insight and judgment appear normal. A/P Assessment and Plan 1. Neutropenia. Neutropenic fever on admission 2. History of invasive ductal carcinoma. On neoadjuvant chemotherapy 3. Anemia. Of chronic disease 4. hypertension. 5. History of fatty liver disease. 6. Boil/cellulitis of head and groin area Patient is afebrile with normal blood pressure and control heart rate Blood culture so far negative Labs reviewed Improving WBC count Hypoalbuminemia Continue on antibiotics Oxygen if patient as needed 2 liters Activity as tolerated in her room Patient is improving on the Appreciate oncology input. Discussed with Dr. Velasquez. Blood cultures for 2 days negative will discharge her home to be followed by Dr. Velasquez next week Discussed with RN Discussed with patient Medications reviewed plan to dc her on po abx dc home today Moon Rodríguez MD December 25, 2016 09:20
[2016-12-25 09:21] LABS: BANDS 21 % (0-6); BASOPHILS 3 % (0-2); DOHLE BODIES PRESENT (NONE SEEN); METAMYELOCYTES 1 % (0-1); NEUTROPHIL # MANUAL DIFF 0.9 TH/MM3 (1.8-7.7); POLYS (SEG NEUTROPHILS) 37 % (16-70); WBC DIFF SAMPLE 100
[2016-12-25 09:22] LABS: PLATELET ESTIMATE SMEAR LOW (NORMAL); PLATELET MORPHOLOGY NORMAL (NORMAL); SCAN/DIFF FINAL DIFF MANUAL
[2016-12-25] MEDS ORDERED: PHARMACY ORDERED LAB ONE (10:45)
[2016-12-25 12:00] VITALS: BP 138/84; PULSE 81; RESP 20; TEMP 99.2; O2SAT 97
[2016-12-25] MEDS: CEFEPIME INJ 2,000 MG in SODIUM CHLORIDE 0.9% INJ 100 ML IV SCH (12:00)
--- NOTE | 2016-12-25 13:59 | PD.ONC.PN ---
Subjective Subjective Remarks Afebrile overnight. Tmax 99.2 today. Feeling well. Wanting to go home. Denies cough or shortness of breath. Denies urinary symptoms. Objective Data Date Time Temp Pulse Resp B/P Pulse Ox O2 Delivery O2 Flow Rate FiO2 12/25/16 12:00 99.2 81 20 138/84 97 12/25/16 08:59 97.9 89 20 158/93 98 12/25/16 04:00 98.1 91 17 123/65 96 12/25/16 00:00 97.3 91 17 126/87 96 12/24/16 21:33 97 12/24/16 20:00 98.4 94 17 140/79 95 12/24/16 16:00 98.5 90 18 121/82 97 Result Diagram: 12/25/16 0655 12/24/16 0548 Laboratory Results Laboratory Tests Test 12/25/16 12/25/16 06:55 10:55 White Blood Count 1.6 TH/MM3 Red Blood Count 2.85 MIL/MM3 Hemoglobin 9.2 GM/DL Hematocrit 26.7 % Mean Corpuscular Volume 93.8 FL Mean Corpuscular Hemoglobin 32.1 PG Mean Corpuscular Hemoglobin 34.3 % Concent Red Cell Distribution Width 13.0 % Platelet Count 122 TH/MM3 Mean Platelet Volume 8.9 FL Neutrophils (%) (Auto) 63.2 % Lymphocytes (%) (Auto) 22.2 % Monocytes (%) (Auto) 14.1 % Eosinophils (%) (Auto) 0.1 % Basophils (%) (Auto) 0.4 % Neutrophils # (Auto) 1.0 TH/MM3 Lymphocytes # (Auto) 0.4 TH/MM3 Monocytes # (Auto) 0.2 TH/MM3 Eosinophils # (Auto) 0.0 TH/MM3 Basophils # (Auto) 0.0 TH/MM3 CBC Comment AUTO DIFF Differential Total Cells 100 Counted Neutrophils % (Manual) 37 % Band Neutrophils % 21 % Lymphocytes % 28 % Monocytes % 10 % Basophils % 3 % Neutrophils # (Manual) 0.9 TH/MM3 Metamyelocytes 1 % Differential Comment FINAL DIFF MANUAL Dohle Bodies PRESENT Platelet Estimate LOW Platelet Morphology Comment NORMAL Red Cell Morphology Comment NORMAL Vancomycin Level Trough 5.1 MCG/ML Culture Results Microbiology Date/Time Procedure Status Source Growth 12/23/16 13:45 Aerobic Blood Culture - Preliminary Resulted Blood Peripheral NO GROWTH IN 2 DAYS 12/23/16 13:45 Anaerobic Blood Culture - Preliminary Resulted Blood Peripheral NO GROWTH IN 2 DAYS Administered Medications Medications (Trade) Dose Ordered Sig/Jama Route PRN Reason Start Time Stop Time Status Last Admin Dose Admin Alprazolam 0.25 mg 0.25 mg Q6H PRN PO ANXIETY 12/23/16 21:00 12/24/16 22:49 Cefepime HCl 2000 mg/Sodium Chloride 100 ml @ 200 mls/hr Q12H IV 12/24/16 00:00 12/24/16 22:47 Sodium Chloride (NS 1000 ml Inj) 1,000 ml @ 100 mls/hr Q10H IV 12/23/16 22:38 12/25/16 03:00 Acetaminophen (Tylenol) 650 mg Q6H PRN PO PAIN SCALE 1 TO 2 12/23/16 22:45 12/24/16 15:47 Pantoprazole Sodium (Protonix) 40 mg DAILY PO 12/24/16 09:00 12/25/16 07:35 Aspirin (Aspirin Chew) 81 mg DAILY PO 12/24/16 09:00 12/25/16 07:35 Cyanocobalamin (Vitamin B12) 1,000 mcg DAILY PO 12/24/16 09:00 12/25/16 07:35 Vitamin E (Vitamin E) 400 units DAILY PO 12/24/16 09:00 12/25/16 07:35 Amlodipine Besylate (Norvasc) 2.5 mg DAILY PO 12/25/16 09:00 12/25/16 07:34 Objective Remarks GENERAL: Middle aged female, sitting up in bed in [facility]. SKIN: Warm and dry. HEAD: Normocephalic. EYES: No injection or drainage. NECK: Supple, trachea midline. CARDIOVASCULAR: Regular rate and rhythm RESPIRATORY: Breath sounds equal bilaterally. No accessory muscle use. GASTROINTESTINAL: Abdomen soft, non-tender, nondistended. EXTREMITIES: No cyanosis NEUROLOGICAL: awake and alert, normal speech. moving all extremities. no obvious focal deficit. Assessment/Plan Problem List: (1) Neutropenic fever Status: Acute Plan: 12/25: Neutrophil count improved to 900 today. afebrile. clear for discharge Blood cultures negative. (2) Locally advanced carcinoma of right breast Status: Acute Plan: 12/25: patient advised to follow up for appointment on 12/30 will check CBC on that day and possibly review CRCA --plan for resection of triple negative breast cancer not responsive to neoadjuvant chemotherapy with Adriamycin and Cytoxan. --Dr. Oliver to proceed with R mastectomy next Wednesday. Anticipate Neutrophil recovery by then. Defer plans for reconstruction. Assessment 61 y/o woman with locally advanced triple negative R breast cancer, growing despite chemotherapy, course complicated by neutropenic fever and R scalp cellulitis/folliculitis. Plan 1. clear for discharge. patient advised to return to the ED immediately if she developed fever>100.4 2. follow up in clinic next Wednesday for CBC check and review BRCA results Attending Statement The exam, history, and the medical decision-making described in the above note were completed with the assistance of the mid-level provider. I reviewed and agree with the findings presented. I attest that I had a [id number] encounter with the patient on the same day, and personally performed and documented my assessment and findings in the medical record. Pt seen and examined, eager to go home. ANC 1000, afebrile, noted low grade. Scalp cellulitis will need continue abx treatment. Discussed w/ Jacey and Dr. Rodríguez. Plan to DC this evening. FU on Wednesday labs, appt on Wed. Jacey Méndez December 25, 2016 13:59 Alaina Velasquez MD December 25, 2016 18:55
[2016-12-25] MEDS ORDERED: VANCOMYCIN 1,500 MG/NS 500 ML IV SCH ×2 (14:00)
[2016-12-25] MEDS ORDERED: OXYC1TAB63 PO (15:20)
[2016-12-25] MEDS ORDERED: BACT800T5 PO (15:20)
[2016-12-25] MEDS ORDERED: CEPH-460 PO (15:20)
--- NOTE | 2016-12-25 15:26 | HHI.DS ---
Discharge Summary Admission Date December 23, 2016 at 15:45 Admitting Diagnosis (1) Neutropenic fever Diagnosis: Principal (2) Cellulitis Brief History Patient was admitted because of the low-grade fever with neutropenia. Admitting diagnoses 1 neutropenic fever. Patient also found out to have a boil/ folliculitis with some cellulitis on head and on left groin area. Patient was started on antibiotic. Patient was seen and followed by oncology. Her neutropenia did get better. She was in reverse isolation while she was in the hospital. Now as overall she is improving and better in good condition plan to discharge her home on a by mouth antibiotic. Discuss case with oncologist and it was okay to discharge. Home. CBC/BMP: 12/25/16 0655 12/24/16 0548 Significant Findings Laboratory Tests Test 12/24/16 12/24/16 12/25/16 00:45 05:48 06:55 Urine Urobilinogen GREATER THAN 12.0 MG/DL (LESS THAN 2.0) Urine Mucus FEW /lpf (OCC) White Blood Count 0.6 TH/MM3 1.6 TH/MM3 (4.0-11.0) (4.0-11.0) Red Blood Count 2.57 MIL/MM3 2.85 MIL/MM3 (4.00-5.30) (4.00-5.30) Hemoglobin 8.3 GM/DL 9.2 GM/DL (11.6-15.3) (11.6-15.3) Hematocrit 24.2 % 26.7 % (35.0-46.0) (35.0-46.0) Platelet Count 117 TH/MM3 122 TH/MM3 (150-450) (150-450) Neutrophils % (Manual) 10 % (16-70) Band Neutrophils % 18 % (0-6) 21 % (0-6) Lymphocytes % 48 % (9-44) Monocytes % 24 % (0-8) 10 % (0-8) Neutrophils # (Manual) 0.2 TH/MM3 0.9 TH/MM3 (1.8-7.7) (1.8-7.7) Dohle Bodies PRESENT (NONE PRESENT (NONE SEEN) SEEN) Platelet Estimate LOW (NORMAL) LOW (NORMAL) Total Protein 6.3 GM/DL (6.4-8.2) Albumin 3.1 GM/DL (3.4-5.0) Monocytes (%) (Auto) 14.1 % (0.0-8.0) Neutrophils # (Auto) 1.0 TH/MM3 (1.8-7.7) Lymphocytes # (Auto) 0.4 TH/MM3 (1.0-4.8) Basophils % 3 % (0-2) Pt Condition on Discharge: Good Discharge Disposition: Discharge Home Discharge Instructions DIET: Follow Instructions for: As Tolerated, No Restrictions Activities you can perform: Weight Bearing as Sen Follow up Referrals: Oncology - 1 Week New Medications: Cephalexin (Keflex) 500 Mg Cap 500 MG PO Q12H Infection #14 Ref 0 CAP Sulfamethoxazole-Trimethoprim (Bactrim DS) 800-160 Mg Tab 1 TAB PO BID Infection #14 Ref 0 TAB Oxycodone-Acetaminophen (Oxycodone-Acetaminophen) 5-325 mg Tab 1 TAB PO Q6H PRN PAIN SCALE 3 TO 5 #30 TAB Continued Medications: Alprazolam (Alprazolam) 0.25 Mg Tab 0.25 MG PO HS PRN anxiety Ref 0 TAB Amlodipine (Norvasc) 5 Mg Tab 5 MG PO DAILY Blood Pressure Management #[address] Ref [address] (Aspirin 81) 81 Mg Tabdr 81 MG PO DAILY Ref 0 TAB Cyanocobalamin (B12) 1,000 Mcg Tab 1000 MCG PO DAILY Enalapril (Enalapril) 10 Mg Tab 10 MG PO DAILY #60 Ref 0 TAB Gabapentin (Gabapentin) 300 Mg Cap 300 MG PO DAILY PRN neuropathy #60 Ref 0 CAP Vitamin E (E-400) 400 Unit Cap 400 MG PO DAILY Discontinued Medications: Aspirin DR (Aspir-81) 81 Mg Tabdr Moon Rodríguez MD December 25, 2016 15:26
[2016-12-27] MEDS ORDERED: PHARMACY ORDERED LAB ONE (01:45)
== END 2016-12-25 16:11 | disposition home or self-care (01) | DRG 809 ==
LOC: HOCB 15:45
PROVIDERS: ADMIT Specialist; ATTEND Specialist
DX: D70.9 Neutropenia, unspecified (principal); L03.811 Cellulitis of head [any part, except face]; K76.0 Fatty (change of) liver, not elsewhere classified; C50.911 Malignant neoplasm of unspecified site of right female breast; E88.09 Other disorders of plasma-protein metabolism, not elsewhere classified; I10 Essential (primary) hypertension; R50.81 Fever presenting with conditions classified elsewhere; L73.9 Follicular disorder, unspecified; R51 Headache
CPT/HCPCS: 36591; 80053; 80202; 81001; 85007; 85027; 87040; 96365; J0692; J3370; J7030; J7040; J7050

== ENCOUNTER → 2017-01-01 | Day surgery (SDC) | payer OTHER ==
[~2017-01-01] MED LIST changes: +ACETAMINOPHEN/HYDROcodone 325 MG/5 MG TAB ONE; -ASPI81TA81; +BUPIVACAINE/EPINEPHRINE 0.25% 50 ML VIAL ONE; +ISOSULFAN BLUE 50 MG/5 ML VIAL SQ ONE; +LACTATED RINGER'S 1,000 ML BAG IV ONE; -LIDOCAINE 1%/EPINEPHrine 1:100,000 SOLN 20 ML VIAL ONE; +MEPERIDINE HCL 50 MG/ML VIAL ONE; +PROPOFOL 200 MG/20 ML AMP IV ONE; -PROPOFOL 500 MG/50 ML BTL IV ONE; -SODIUM CHLORIDE 0.9% INJ 10 ML ONE
--- NOTE | 2017-01-01 16:26 | TN ---
cc: NARENDRA MOLINA M.D., RUBY ANNE E. M.D. DATE OF SURGERY: 01/01/2017. PREOPERATIVE DIAGNOSIS: 1. Right breast poorly differentiated invasive ductal carcinoma. 2. Scalp abscess. POSTOPERATIVE DIAGNOSIS: 1. Right breast poorly differentiated invasive ductal carcinoma. 2. Scalp abscess. OPERATIVE PROCEDURE PERFORMED: 1. Injection blue dye right breast. 2. Right total mastectomy with right axillary sentinel lymph node biopsy. 3. Incision and drainage, scalp abscess. SURGEON: Dr. Narendra Molina. DETONATOR ASSEMBLER: MICHAEL Cuevas. ANESTHESIA: General. INDICATIONS FOR THE PROCEDURE: Very pleasant 61-year-old woman who was diagnosed with poorly differentiated triple-negative right breast cancer and underwent neoadjuvant chemotherapy under the direction of Dr. Alaina Velasquez. Unfortunately the tumor grew in spite of the chemotherapy and plans are made for definitive surgery. INTRAOPERATIVE FINDINGS: 1. Right breast to pathology with short stitch superior and anterior and a long stitch lateral and posterior. 2. A sentinel lymph node axillary fatty package sent with four identifiable sentinel lymph nodes: #1 with a 10-second count of 169, and #2 with 2982, #3 216 and #4 2773. 3. No additional palpable nodes were demonstrated within the axilla. DRAINS: A #10 K[place] fluted drain was placed and a Deshaun dressing placed. NOTE: This procedure was assisted by my nurse practitioner. The skill set of an MEDICAL EDUCATION MANAGER was medically necessary to provide appropriate visualization of the operative field and facilitate efficiency of the completion of the procedure. The surgical garment fitter was at the back table providing appropriate instrumentation while the nurse practitioner directly assisted me. ESTIMATED BLOOD LOSS: Less than 25 mL. DESCRIPTION OF THE PROCEDURE IN DETAIL: The patient was identified as Divya Blount and taken to the operating room and placed in the supine position. Sequential compression devices were placed on bilateral lower extremities. The patient had undergone lymphoscintigraphy and had been marked appropriately by radiology. Following induction of adequate general anesthesia, the patient's right breast, chest wall and axilla were prepped and draped in the usual sterile fashion with Betadine. A time-out procedure had been performed. Following completion the time-out procedure to everyone's satisfaction within the room, 5 mL of isosulfan blue dye was injected in the peritumoral and subareolar positions. The Navigator probe was used and increased uptake in the internal mammary chain was beneath the sternum superomedially. There was more active increased uptake actually in the right axilla than in the internal mammary. The location had been marked by radiology. A proposed clam shell incision which was more extensive than I would normally do due to the proximity of the tumor at the twelve o'clock position to the overlying skin. The marking pen was used to make this proposed incision and the incision was carried out with a scalpel. Hemostasis was controlled with electrocautery. Circumferential skin flaps were then developed using electrocautery and appropriate retraction and the breast was then removed from the underlying pectoralis muscle including the fascia with the specimen superomedial to inferolateral. The breast was marked and sent to pathology. The sentinel lymph node biopsy was then performed with the above-mentioned findings. Lymph nodes and lymphatics were from surrounding tissues using combination electrocautery, blunt dissection and hemoclips on lymphovascular structures. At least one intercostal brachial nerve was encountered and divided. The specimen was passed off the field for pathologic evaluation. No additional increased uptake or palpable lymphadenopathy was identified within the wound. No additional blue-stained lymphatics were seen. The wound was copiously irrigated with saline. Small bleeding points were controlled with electrocautery. Once the wound was sure to be dry, through separate stab incision inferomedially a 10 [place] fluted drain was placed through the incision and into the operative field beneath the skin flaps and held in position at the level of the skin with a 3-0 nylon drain stitch. The wound was approximated with multiple interrupted 3-0 Vicryl sutures and a running 4-0 Monocryl subcuticular suture. A Deshaun dressing was applied in standard fashion using Mastisol with the Deshaun dressing over the exit site of the drain. A Biopatch was placed and clear bandages of the Deshaun dressing were placed over the Biopatch. Through the drain, 25 mL of Marcaine was placed and the drain bulb was connected but not activated. Attention was then turned to the a scalp. The small area of inflammation was prepped with Betadine spray. The surrounding area was infiltrated with local anesthetic and a small stab incision was made with a scalpel and purulent drainage expressed. It was then irrigated, with local anesthetic Betadine and saline. A dry dressing was placed. The patient tolerated the procedures well without apparent complication. Sponge, needle and instrument counts were correct at the end of the case. MD NEREYDA Santoro/SHARAN /3:50 PM /4:09 PM
== END | disposition home or self-care (01) ==
LOC: ESDC 06:21
PROVIDERS: ATTEND Surgery Trauma Surgery
DX: C50.911 Malignant neoplasm of unspecified site of right female breast (principal); L02.811 Cutaneous abscess of head [any part, except face]
CPT/HCPCS: 00300; 00400; 01610; 10060; 19303; 38525; 38792; 88307; J0690; J2175; J2250; J2405; J3010; J7120; Q9968; 88361

== ENCOUNTER 2017-07-08 12:14 | Emergency (ER) | payer OTHER ==
[~2017-07-08] VITALS: Ht 162.6 cm; Wt 70.0 kg
[~2017-07-08 12:14] MED LIST changes: -ACETAMINOPHEN/HYDROcodone 325 MG/5 MG TAB ONE; -ASPI-110 PO; +ASPI1TAB57 PO; -BUPIVACAINE/EPINEPHRINE 0.25% 50 ML VIAL ONE; -ISOSULFAN BLUE 50 MG/5 ML VIAL SQ ONE; -LACTATED RINGER'S 1,000 ML BAG IV ONE; -LACTATED RINGER'S 1000 ML INJ 1,000 ML ONE; -MEPERIDINE HCL 50 MG/ML VIAL ONE; -MIDAZOLAM HCL 2 MG/2 ML VIAL ONE; -ONDANSETRON HCL 4 MG/2 ML VIAL IV PUSH ONE; -PROPOFOL 200 MG/20 ML AMP IV ONE; -ceFAZolin 2 GM PREMIX 50 ML ONE
[2017-07-08 12:18] VITALS: BP 144/85; PULSE 92; RESP 15; TEMP 98.8; O2SAT 99
[2017-07-08] MEDS ORDERED: SODIUM CHLOR 0.9% 1000 ML INJ 1,000 ML IV ONE (12:34)
[2017-07-08] MEDS ORDERED: SODIUM CHLORIDE 0.9% FLUSH 10 ML FLUSH IVF PRN (12:45)
--- NOTE | 2017-07-08 12:48 | PD ---
HPI Chief Complaint: GI Complaint Time Seen by Provider: 12:28 Travel History International Travel<30 days: No Contact w/Intl Traveler<30days: No Traveled to known affect area: No History of Present Illness HPI 61-year-old female presents to the emergency department via EMS for evaluation nausea vomiting that started this morning around 6:30 AM. She states she has vomited approximately 5 times. She tried to take Zofran at home, but vomited up. Patient states she started feel dizzy. She does have breast cancer. Her last chemotherapy was 5 weeks ago. She is currently done with chemotherapy. She is undergoing radiation therapy. She denies any fevers or chills. No chest pain or shortness breath. She denies any abdominal pain. No diarrhea or constipation. Patient received Zofran via EMS and states she is feeling much better. She states she has not vomited in the past hour and a half. She has reports history of hypertension and hyperlipidemia. Patient states the dizziness is resolved at this time. Severity is moderate. Alleviating factor is Zofran. No exacerbating factors. PFSH Past Medical History Cancer: Yes (right breast) Chemotherapy: Yes (finished 5 weeks ago) Hypertension: Yes Radiation Therapy: Yes Past Surgical History Abdominal Surgery: Yes (colonoscopy 2008) Gynecologic Surgery: Yes (right breast biopsy) Other Surgery: Yes Social History Alcohol Use: Yes (occasional) Tobacco Use: No Substance Use: No Allergies-Medications (Allergen,Severity, Reaction): Coded Allergies: latex (Unverified Allergy, Unknown, 03/30/17) Reported Meds & Prescriptions Reported Meds & Active Scripts Active Oxycodone-Acetaminophen 5-325 mg Tab 1 Tab PO Q6H PRN Reported Alprazolam 0.25 Mg Tab 0.25 Mg PO HS PRN Gabapentin 300 Mg Cap 300 Mg PO DAILY PRN B12 (Cyanocobalamin) 1,000 Mcg Tab 1,000 Mcg PO DAILY E-400 (Vitamin E) 400 Unit Cap 400 Mg PO DAILY Aspirin 81 (Aspirin) 81 Mg Tabdr 81 Mg PO DAILY Norvasc (Amlodipine Besylate) 5 Mg Tab 5 Mg PO DAILY Enalapril (Enalapril Maleate) 10 Mg Tab 10 Mg PO DAILY Review of Systems Except as stated in HPI: all other systems reviewed are Neg Physical Exam Narrative GENERAL: Well-nourished, well-developed female patient, ambulatory. Afebrile. SKIN: Focused skin assessment warm/dry. HEAD: Normocephalic. Atraumatic. EYES: No scleral icterus. No injection or drainage. NECK: Supple, trachea midline. No JVD or lymphadenopathy. CARDIOVASCULAR: Regular rate and rhythm without murmurs, gallops, or rubs. RESPIRATORY: Breath sounds equal bilaterally. No accessory muscle use. Lungs sounds are clear to auscultation. GASTROINTESTINAL: Abdomen soft, non-tender, nondistended. No abdominal tenderness to palpation. MUSCULOSKELETAL: No cyanosis, or edema. BACK: Nontender without obvious deformity. No CVA tenderness. Data Data Last Documented VS Vital Signs Date Time Temp Pulse Resp B/P (MAP) Pulse Ox O2 Delivery O2 Flow Rate FiO2 07/08/17 12:18 98.8 92 15 144/85 (104) 99 Orders Orders Complete Blood Count With Diff (07/08/17 12:34) Comprehensive Metabolic Panel (07/08/17 12:34) Urinalysis - C+S If Indicated (07/08/17 12:34) Lipase (07/08/17 12:34) Iv Access Insert/Monitor (07/08/17 12:34) Ecg Monitoring (07/08/17 12:34) Oximetry (07/08/17 12:34) Sodium Chlor 0.9% 1000 Ml Inj (Ns 1000 M (07/08/17 12:34) Sodium Chloride 0.9% Flush (Ns Flush) (07/08/17 12:45) Prochlorperazine Inj (Compazine Inj) (07/08/17 13:00) Diphenhydramine Inj (Benadryl Inj) (07/08/17 13:00) Labs Laboratory Tests Test 07/08/17 12:40 07/08/17 12:45 Urine Color YELLOW Urine Turbidity CLEAR Urine pH 8.5 Urine Specific [place] 1.017 Urine Protein TRACE mg/dL Urine Glucose (UA) NEG mg/dL Urine Ketones 40 mg/dL Urine Occult Blood NEG Urine Nitrite NEG Urine Bilirubin NEG Urine Urobilinogen LESS THAN 2.0 MG/DL Urine Leukocyte Esterase NEG Urine RBC LESS THAN 1 /hpf Urine WBC 2 /hpf Urine Squamous Epithelial Cells <1 /hpf Urine Bacteria RARE /hpf Urine Mucus FEW /lpf Microscopic Urinalysis Comment CULT NOT INDICATED White Blood Count 5.8 TH/MM3 Red Blood Count 2.84 MIL/MM3 Hemoglobin 11.2 GM/DL Hematocrit 33.2 % Mean Corpuscular Volume 117.1 FL Mean Corpuscular Hemoglobin 39.4 PG Mean Corpuscular Hemoglobin Concent 33.6 % Red Cell Distribution Width 22.6 % Platelet Count 185 TH/MM3 Mean Platelet Volume 8.5 FL Neutrophils (%) (Auto) 89.0 % Lymphocytes (%) (Auto) 6.5 % Monocytes (%) (Auto) 4.3 % Eosinophils (%) (Auto) 0.1 % Basophils (%) (Auto) 0.1 % Neutrophils # (Auto) 5.2 TH/MM3 Lymphocytes # (Auto) 0.4 TH/MM3 Monocytes # (Auto) 0.2 TH/MM3 Eosinophils # (Auto) 0.0 TH/MM3 Basophils # (Auto) 0.0 TH/MM3 CBC Comment DIFF FINAL Differential Comment Blood Urea Nitrogen 7 MG/DL Creatinine 0.65 MG/DL Random Glucose 112 MG/DL Total Protein 7.9 GM/DL Albumin 4.0 GM/DL Calcium Level 8.5 MG/DL Alkaline Phosphatase 45 U/L Aspartate Amino Transf (AST/SGOT) 82 U/L Alanine Aminotransferase (ALT/SGPT) 62 U/L Total Bilirubin 0.8 MG/DL Sodium Level 139 MEQ/L Potassium Level 4.0 MEQ/L Chloride Level 104 MEQ/L Carbon Dioxide Level 24.9 MEQ/L Anion Gap 10 MEQ/L Estimat Glomerular Filtration Rate 93 ML/MIN Lipase 68 U/L MDM Medical Decision Making Medical Screen Exam Complete: Yes Emergency Medical Condition: Yes Medical Record Reviewed: Yes Differential Diagnosis Acute nausea and vomiting versus gastroenteritis versus electrolyte abnormality versus dehydration Narrative Course 61-year-old female presents to the emergency department for evaluation nausea and vomiting that started at 6:30 this morning. She states she is feeling better at my assessment. IV access established. CBC, CMP, lipase, UA are ordered and pending. Patient is given normal saline 1 L IV bolus. CBC shows no acute abnormality and is improved from previous labs. CMP shows no acute abnormality. She does have some slightly elevated liver enzymes with an AST of 82, ALT 62. Patient is instructed to follow-up with her primary care physician regarding this. Lipase is 68. UA is negative for acute infection. Upon reexamination, patient states she is feeling much better. She is able to tolerate taking water without difficulty. She states her dizziness is completely resolved and has not returned. She is wishing to go home. I think this is reasonable. Patient instructed to follow primary care physician. She is return here for any acute worsening of symptoms. The patient was discharged in stable condition with instructions, including return instructions and follow up instructions. Diagnosis Primary Impression: Nausea & vomiting Qualified Codes: R11.2 - Nausea with vomiting, unspecified Referrals: Primary Care Physician call for appointment Patient Instructions: Acute Nausea and Vomiting (ED), General Instructions Additional Instructions: Continue Zofran as instructed as needed for nausea/vomiting. Follow-up with your primary care physician. Return to the emergency department for any acute worsening of symptoms. Med/Other Pt SpecificInfo: No Change to Meds Disposition: 01 DISCHARGE HOME Condition: Stable PonchoLexy Jul 08, 2017 12:48
--- NOTE | 2017-07-08 12:53 | PD ---
Physical Exam Date Seen by Provider: Jul 08, 2017 Time Seen by Provider: 12:50 Narrative This patient presents with nausea, vomiting and dizziness. She is on chemotherapy. Data Data Last Documented VS Vital Signs Date Time Temp Pulse Resp B/P (MAP) Pulse Ox O2 Delivery O2 Flow Rate FiO2 07/08/17 12:18 98.8 92 15 144/85 (104) 99 Orders Orders Complete Blood Count With Diff (07/08/17 12:34) Comprehensive Metabolic Panel (07/08/17 12:34) Urinalysis - C+S If Indicated (07/08/17 12:34) Lipase (07/08/17 12:34) Iv Access Insert/Monitor (07/08/17 12:34) Ecg Monitoring (07/08/17 12:34) Oximetry (07/08/17 12:34) Sodium Chlor 0.9% 1000 Ml Inj (Ns 1000 M (07/08/17 12:34) Sodium Chloride 0.9% Flush (Ns Flush) (07/08/17 12:45) Prochlorperazine Inj (Compazine Inj) (07/08/17 13:00) Diphenhydramine Inj (Benadryl Inj) (07/08/17 13:00) MDM Supervised Visit with CORIN: Yes Narrative Course I, Dr. Colón, have reviewed the advance practice practitioner's documentation and am in agreement, met with the patient face to face, made the diagnosis, and the medical decision making was done by me. *My assessment and Findings: The patient told me that she was feeling better following Zofran but that she was still having episodes of nausea. I gave her Compazine. Please see Lexy Isaac NP's note for laboratory and radiology results, final diagnosis and disposition Belén Colón MD Jul 08, 2017 12:53
[2017-07-08] MEDS ORDERED: diphenhydrAMINE HCL 50 MG/ML VIAL IV PUSH ONE (13:00)
[2017-07-08] MEDS ORDERED: PROCHLORPERAZINE INJ 10 MG/2 ML VIAL IV PUSH ONE (13:00)
[2017-07-08 13:09] LABS: AUTOMATED NEUTROPHIL # 5.2 TH/MM3 (1.8-7.7); BASOPHIL % 0.1 % (0.0-2.0); EOSINOPHIL % 0.1 % (0.0-4.0); HEMATOCRIT 33.2 % (35.0-46.0); HEMO FLAGS DIFF FINAL; LYMPH % 6.5 % (9.0-44.0); LYMPHOCYTE # 0.4 TH/MM3 (1.0-4.8); MEAN CELL VOLUME 117.1 FL (80.0-100.0); MEAN CORPUSCULAR HEMOGLOBIN 39.4 PG (27.0-34.0); MEAN CORPUSCULAR HGB CONC 33.6 % (32.0-36.0); MONO % 4.3 % (0.0-8.0); PLATELET COUNT 185 TH/MM3 (150-450); RED BLOOD COUNT 2.84 MIL/MM3 (4.00-5.30); RED CELL DISTRIBUTION WIDTH 22.6 % (11.6-17.2); WHITE BLOOD COUNT 5.8 TH/MM3 (4.0-11.0)
[2017-07-08 13:19] LABS: BACTERIA, URINE RARE /hpf; BLOOD, URINE NEG (NEG); GLUCOSE,URINE NEG (NEG); KETONE, URINE 40 mg/dL (NEG); MUCUS URINE FEW /lpf (OCC); NITRITE,URINE NEG (NEG); PH, URINE 8.5 (5.0-8.5); SQUAMOUS EPITHELIAL CELL URINE <1 /hpf (0-5); URINE COLOR YELLOW (YELLW/STRAW)
[2017-07-08 13:22] LABS: COMMENT (UR) CULT NOT INDICATED; CULTURE IF INDICATED CULT NOT INDICATED
[2017-07-08 13:35] LABS: ALT (GPT) 62 U/L (10-53)
[2017-07-08 13:37] LABS: ALKALINE PHOSPHATASE 45 U/L (45-117); TOTAL BILIRUBIN ADULT 0.8 MG/DL (0.2-1.0)
[2017-07-08 13:45] LABS: ANION GAP 10 MEQ/L (5-15); AST (GOT) 82 U/L (15-37); BICARBONATE 24.9 MEQ/L (21.0-32.0); BLOOD UREA NITROGEN 7 MG/DL (7-18); CHLORIDE 104 MEQ/L (98-107); GLOMERULAR FILTRATION RATE 93 ML/MIN (>89); SODIUM (NA) 139 MEQ/L (136-145)
== END 2017-07-08 15:28 | disposition home or self-care (01) ==
LOC: NEPE 12:14
DX: R11.2 Nausea with vomiting, unspecified (principal); R42 Dizziness and giddiness; I10 Essential (primary) hypertension; E78.5 Hyperlipidemia, unspecified; Z85.3 Personal history of malignant neoplasm of breast; Z79.82 Long term (current) use of aspirin; Z79.899 Other long term (current) drug therapy
CPT/HCPCS: 80053; 81001; 83690; 85025; 96374; 96375; 99284; J0780; J1200; J7030

== ENCOUNTER 2017-09-25 12:38 | Emergency (ER) | payer OTHER ==
[~2017-09-25] VITALS: Ht 162.6 cm; Wt 67.0 kg
[~2017-09-25 12:38] MED LIST changes: -BACT800T5 PO; -CEPH-460 PO
[2017-09-25 12:46] VITALS: BP 158/81; PULSE 108; RESP 19; TEMP 98.5; O2SAT 98
[2017-09-25 12:49] VITALS: BP 158/81; PULSE 110; RESP 20; O2SAT 100
[2017-09-25] MEDS ORDERED: ONDANSETRON HCL 4 MG/2 ML VIAL IV ONE (13:15)
[2017-09-25] MEDS ORDERED: LORazepam 2 MG/ML VIAL IV PUSH ONE (13:15)
[2017-09-25] MEDS ORDERED: SODIUM CHLOR 0.9% 1000 ML INJ 1,000 ML IV ONE (13:15)
[2017-09-25] MEDS ORDERED: SODIUM CHLORIDE 0.9% FLUSH 10 ML FLUSH IVF PRN (13:15)
[2017-09-25 13:21] LABS: AUTOMATED NEUTROPHIL # 5.9 TH/MM3 (1.8-7.7); BASOPHIL % 0.3 % (0.0-2.0); HEMATOCRIT 38.4 % (35.0-46.0); HEMOGLOBIN 13.9 GM/DL (11.6-15.3); LYMPH % 8.9 % (9.0-44.0); LYMPHOCYTE # 0.6 TH/MM3 (1.0-4.8); MEAN CELL VOLUME 107.8 FL (80.0-100.0); MEAN CORPUSCULAR HEMOGLOBIN 38.9 PG (27.0-34.0); MEAN PLATELET VOLUME 7.2 FL (7.0-11.0); MONO % 5.6 % (0.0-8.0); MONOCYTE # 0.4 TH/MM3 (0-0.9); NEUT % 85.2 % (16.0-70.0); PLATELET COUNT 228 TH/MM3 (150-450); RED BLOOD COUNT 3.56 MIL/MM3 (4.00-5.30); RED CELL DISTRIBUTION WIDTH 13.4 % (11.6-17.2)
[2017-09-25 13:28] LABS: MEAN CORPUSCULAR HGB CONC 36.1 % (32.0-36.0)
[2017-09-25 13:39] LABS: ALBUMIN 4.2 GM/DL (3.4-5.0); ALT (GPT) 63 U/L (10-53); AST (GOT) 56 U/L (15-37); BICARBONATE 23.4 MEQ/L (21.0-32.0); BLOOD UREA NITROGEN 9 MG/DL (7-18); CALCIUM 9.1 MG/DL (8.5-10.1); CHLORIDE 98 MEQ/L (98-107); CREATININE 0.74 MG/DL (0.50-1.00); GLOMERULAR FILTRATION RATE 80 ML/MIN (>89); GLUCOSE,RANDOM 107 MG/DL (74-106); MAGNESIUM 1.4 MG/DL (1.5-2.5); SODIUM (NA) 137 MEQ/L (136-145)
[2017-09-25 13:43] LABS: ALKALINE PHOSPHATASE 55 U/L (45-117); TOTAL BILIRUBIN ADULT 0.5 MG/DL (0.2-1.0); TOTAL PROTEIN 8.6 GM/DL (6.4-8.2); TROPONIN I LESS THAN 0.02 NG/ML (0.02-0.05)
--- NOTE | 2017-09-25 13:56 | RADRPT ---
EXAM DATE/TIME: 09/25/2017 13:32 [facility] COMPARISON: No previous studies available for comparison. INDICATIONS : Short of breath. Cough. Vomiting. MEDICAL HISTORY : Breast cancer. SURGICAL HISTORY : Right mastectomy. ENCOUNTER: Initial ACUITY: 1 day PAIN SCORE: 0/10 LOCATION: Bilateral chest FINDINGS: A single view of the chest demonstrates the lungs to be symmetrically aerated without evidence of mas s, infiltrate or effusion. The cardiomediastinal contours are unremarkable. Osseous structures are intact. A few thin linear areas of density in the left base laterally suggesting discoid atelectasis or scarring. CONCLUSION: A few thin linear areas of density left base near the costophrenic angle suggesting scarring or disco id atelectasis Gen Wolf MD on September 25, 2017 at 13:53 Board Certified Radiologist. This report was verified electronically.
[2017-09-25 14:00] VITALS: BP 143/81; PULSE 100; RESP 19; O2SAT 100
--- NOTE | 2017-09-25 14:27 | PD ---
HPI Chief Complaint: GI Complaint Time Seen by Provider: 12:56 Travel History International Travel<30 days: No Contact w/Intl Traveler<30days: No Traveled to known affect area: No History of Present Illness HPI Is a 61-year-old woman who presents to the emergency department complaining of abrupt onset of feeling weird this morning, shortness of breath, palpitations, some chest tightness. She recently completed treatment for breast cancer, and recently turned on a trip from [place]. She otherwise had been feeling well and healthy generally before this. No history of blood clots. No recent infectious symptoms. No other complaints. History Past Medical History Narrative Medical Breast CA Tachycardia Hypertension Chest wall pain Social History Alcohol Use: Yes (occasional) Tobacco Use: No Allergies-Medications (Allergen,Severity, Reaction): Coded Allergies: latex (Unverified Allergy, Unknown, 03/30/17) Reported Meds & Prescriptions Reported Meds & Active Scripts Active Oxycodone-Acetaminophen 5-325 mg Tab 1 Tab PO Q6H PRN Reported Alprazolam 0.25 Mg Tab 0.25 Mg PO HS PRN Gabapentin 300 Mg Cap 300 Mg PO DAILY PRN B12 (Cyanocobalamin) 1,000 Mcg Tab 1,000 Mcg PO DAILY E-400 (Vitamin E) 400 Unit Cap 400 Mg PO DAILY Aspirin 81 (Aspirin) 81 Mg Tabdr 81 Mg PO DAILY Norvasc (Amlodipine Besylate) 5 Mg Tab 5 Mg PO DAILY Enalapril (Enalapril Maleate) 10 Mg Tab 10 Mg PO DAILY Review of Systems Except as stated in HPI: all other systems reviewed are Neg Physical Exam Narrative GENERAL: Well-appearing 61-year-old woman, thin, no acute distress. SKIN: Focused skin assessment warm/dry. HEAD: Atraumatic. Normocephalic. EYES: Pupils equal and round. No scleral icterus. No injection or drainage. ENT: No nasal bleeding or discharge. Mucous membranes pink and moist. NECK: Trachea midline. No JVD. CARDIOVASCULAR: Heart rates older rapid. No murmurs. RESPIRATORY: No accessory muscle use. Clear to auscultation. Breath sounds equal bilaterally. GASTROINTESTINAL: Abdomen soft, non-tender, nondistended. Hepatic and splenic margins not palpable. MUSCULOSKELETAL: No obvious deformities. No clubbing. No cyanosis. No edema. NEUROLOGICAL: Awake and alert. No obvious cranial nerve deficits. Motor grossly within normal limits. Normal speech. PSYCHIATRIC: Appropriate mood and affect; insight and judgment normal. Data Data Last Documented VS Vital Signs Date Time Temp Pulse Resp B/P (MAP) Pulse Ox O2 Delivery O2 Flow Rate FiO2 09/25/17 14:00 100 19 143/81 (101) 100 Nasal Cannula 2.00 09/25/17 12:46 98.5 Orders Orders Complete Blood Count With Diff (09/25/17 13:04) Comprehensive Metabolic Panel (09/25/17 13:04) D-Dimer (09/25/17 13:04) Magnesium (Mg) (09/25/17 13:04) Troponin I (09/25/17 13:04) Influenzae A/B Antigen (09/25/17 13:04) Iv Access Insert/Monitor (09/25/17 13:04) Electrocardiogram (09/25/17 13:04) Ecg Monitoring (09/25/17 13:04) Oximetry (09/25/17 13:04) Oxygen Administration (09/25/17 13:04) Chest, Single Ap (09/25/17 13:04) Sodium Chloride 0.9% Flush (Ns Flush) (09/25/17 13:15) Sodium Chlor 0.9% 1000 Ml Inj (Ns 1000 M (09/25/17 13:15) Ondansetron Inj (Zofran Inj) (09/25/17 13:15) Lorazepam Inj (Ativan Inj) (09/25/17 13:15) Ct Pulmonary Angiogram (09/25/17 ) Iohexol 350 Inj (Omnipaque 350 Inj) (09/25/17 15:15) Troponin I (09/25/17 15:51) Labs Laboratory Tests Test 09/25/17 13:05 09/25/17 15:59 White Blood Count 7.0 TH/MM3 Red Blood Count 3.56 MIL/MM3 Hemoglobin 13.9 GM/DL Hematocrit 38.4 % Mean Corpuscular Volume 107.8 FL Mean Corpuscular Hemoglobin 38.9 PG Mean Corpuscular Hemoglobin Concent 36.1 % Red Cell Distribution Width 13.4 % Platelet Count 228 TH/MM3 Mean Platelet Volume 7.2 FL Neutrophils (%) (Auto) 85.2 % Lymphocytes (%) (Auto) 8.9 % Monocytes (%) (Auto) 5.6 % Eosinophils (%) (Auto) 0.0 % Basophils (%) (Auto) 0.3 % Neutrophils # (Auto) 5.9 TH/MM3 Lymphocytes # (Auto) 0.6 TH/MM3 Monocytes # (Auto) 0.4 TH/MM3 Eosinophils # (Auto) 0.0 TH/MM3 Basophils # (Auto) 0.0 TH/MM3 CBC Comment AUTO DIFF Differential Comment AUTO DIFF CONFIRMED D-Dimer Quantitative (PE/DVT) 0.64 MG/L FEU Blood Urea Nitrogen 9 MG/DL Creatinine 0.74 MG/DL Random Glucose 107 MG/DL Total Protein 8.6 GM/DL Albumin 4.2 GM/DL Calcium Level 9.1 MG/DL Magnesium Level 1.4 MG/DL Alkaline Phosphatase 55 U/L Aspartate Amino Transf (AST/SGOT) 56 U/L Alanine Aminotransferase (ALT/SGPT) 63 U/L Total Bilirubin 0.5 MG/DL Sodium Level 137 MEQ/L Potassium Level 3.1 MEQ/L Chloride Level 98 MEQ/L Carbon Dioxide Level 23.4 MEQ/L Anion Gap 16 MEQ/L Estimat Glomerular Filtration Rate 80 ML/MIN Troponin I LESS THAN 0.02 NG/ML LESS THAN 0.02 NG/ML MDM Medical Decision Making Medical Screen Exam Complete: Yes Emergency Medical Condition: Yes Interpretation(s) Review of EKG, normal sinus rhythm at a rate of 96 normal axis, normal intervals , no acute ischemia. LABS: CBC is unremarkable. CMP with a little bit of an elevated anion gap. AST and ALT are mildly elevated consistent with previous. Troponin negative. 2 D-dimer 0.64. Influenza negative. Chest x-ray: Teeth and areas of density in the left base near the costophrenic angle. CTA: Negative for pulmonary embolism. Poor visualization of the left main. Differential Diagnosis Anxiety attack, PE, pneumonia, bronchitis, other Narrative Course Medical decision making INITIAL cause of 61-year-old presents emergency room with abrupt onset shortness of breath and feeling weird this morning. Possible anxiety attack. Risk factors for PE. Looks otherwise well now. Minimal symptoms. Improved after Ativan. D-dimer is elevated. Will check CT, otherwise outpatient follow- up. Diagnosis Primary Impression: Chest pain Additional Instructions: Continue current medications. Follow with her primary doctor in the next 2-4 days. Return to the emergency department for any new or worsening symptoms. Med/Other Pt SpecificInfo: No Change to Meds Disposition: 01 DISCHARGE HOME Condition: Sathish Torres MD Sep 25, 2017 14:27
[2017-09-25] MEDS ORDERED: IOHEXOL 350 MG/ML 10 ML VIAL (for RAD DIAG) IVCONTRAST ONE (15:15)
--- NOTE | 2017-09-25 15:34 | RADRPT ---
EXAM DATE/TIME: 09/25/2017 15:14 [facility] COMPARISON: CHEST SINGLE AP, September 25, 2017, 13:32. INDICATIONS : Shortness of breath today. IV CONTRAST: 55 cc Omnipaque 350 (iohexol) IV RADIATION DOSE: 8.22 CTDIvol (mGy) MEDICAL HISTORY : Carcinoma, breast. Hypertension. SURGICAL HISTORY : Mastectomy, right. ENCOUNTER: Initial ACUITY: 1 day PAIN SCALE: 0/10 LOCATION: Bilateral chest TECHNIQUE: Volumetric scanning of the chest was performed using a pulmonary embolism protocol MIP images were re constructed. Using automated exposure control and adjustment of the mA and/or kV according to patien t size, radiation dose was kept as low as reasonably achievable to obtain optimal diagnostic quality images. DICOM format image data is available electronically for review and comparison. Follow-up recommendations for detected pulmonary nodules are based at a minimum on nodule size and pa tient risk factors according to Fleischner Society Guidelines. FINDINGS: PULMONARY ARTERIES: No filling defects are seen in the pulmonary arteries through the segmental level. LUNGS: There is no consolidation or pneumothorax . No concerning pulmonary nodule is visualized. Minimal sc arring in the lingula and lung bases PLEURAE: There is no pleural thickening or pleural effusion. MEDIASTINUM: There is good visualization of the great vessels of the middle mediastinum. No evidence of mediastin al or hilar adenopathy/mass. Left main coronary and proximal aspect of the LAD coronary artery are po argelia visualized of questionable significance MUSCULOSKELETAL: Within normal limits for patient age. MISCELLANEOUS: The visualized upper abdominal organs demonstrate no acute abnormality. CONCLUSION: Negative for pulmonary embolization. No consolidative infiltrate. Minimal linear areas of scarring in the lingula and the bases. Poor visualization of the left main coronary arter y and initial segment of the LAD coronary artery. This should be correlated with clinical findings as to coronary artery disease Gen Wolf MD on September 25, 2017 at 15:26 Board Certified Radiologist. This report was verified electronically.
[2017-09-25 17:55] VITALS: BP 145/69
--- NOTE | 2017-09-26 17:38 | EKG ---
Date Performed: 09/25/2017 Time Performed: 13:39:56 PTAGE: 61 years EKG: Sinus rhythm POSSIBLE LEFT ATRIAL ENLARGEMENT NONSPECIFIC T-WAVE ABNORMALITY BORDERLINE ECG PREVIOUS TRACING : 06/03/2017 09.34 Compared to prior tracing, rate has decreased DOCTOR: Ariel Moncada Interpretating Date/Time 09/26/2017 17:36:57
== END 2017-09-25 17:56 | disposition home or self-care (01) ==
LOC: NEPC 12:38
DX: R07.9 Chest pain, unspecified (principal); R00.2 Palpitations; I10 Essential (primary) hypertension; R06.02 Shortness of breath; R94.31 Abnormal electrocardiogram [ECG] [EKG]
CPT/HCPCS: 71045; 71275; 80053; 83735; 84484; 85025; 85379; 87804; 93005; 96361; 96374; 96375; 99284; J2060; J2405; J7030; Q9967